=== PATIENT | female | born 1955 | race Caucasian/White ===

== ENCOUNTER 2024-05-04 09:01 | Outpatient (CLI) | payer MEDICARE | END 2024-05-04 09:02 | disposition home or self-care (01) | LOC: MRI 09:01 | PROVIDERS: ATTEND Nurse Practitioner Family | DX: M67.911 Unspecified disorder of synovium and tendon, right shoulder (principal); M75.51 Bursitis of right shoulder; M75.01 Adhesive capsulitis of right shoulder; S46.011A Strain of muscle(s) and tendon(s) of the rotator cuff of right shoulder, initial encounter ==